=== PATIENT | female | born 2000 | race Caucasian/White ===

== ENCOUNTER 2022-08-17 12:15 | Inpatient (IN) | payer OTHER ==
[2022-08-17 13:55] LABS: BASO % 0.2 % (0-2.0); EOS % 0.7 % (0-4.5); HEMOGLOBIN 13.2 GM/dL (10.7-15.3); LYMPH % 16.9 % (8-40); MCH 32.5 pg (25.7-33.7); MCHC 34.6 g/dl (32.0-36.0); MEAN CELL VOLUME 93.8 fl (80-96); MEAN PLT VOLUME 8.9 fl (7.5-11.1); MONO % 7.8 % (3.8-10.2); NEUT % 74.4 % (42.8-82.8); PLATELET COUNT 281 10^3/uL (134-434); RBC 4.05 M/mm3 (3.60-5.2); RDW 13.6 % (11.6-15.6); WHITE BLOOD COUNT 11.1 K/mm3 (4.0-10.0)
[2022-08-17 14:02] LABS: INR 0.97 (0.83-1.09); PROTHROMBIN TIME (PATIENT) 11.3 SEC (9.7-13.0)
[2022-08-17 14:04] LABS: ACTIVATED PTT 26.5 SECONDS (25.2-36.5)
[2022-08-17 14:25] VITALS: BMI 42.0
[2022-08-17 14:30] LABS: CALCIUM 9.3 mg/dL (8.5-10.1)
[2022-08-17 14:31] LABS: BLOOD UREA NITROGEN 9.9 mg/dL (7-18)
[2022-08-17 14:34] LABS: CREATININE 0.7 mg/dL (0.55-1.3)
[2022-08-17] MEDS ORDERED: OXYTOCIN 30 UNITS in 0.9% NS 30 UNIT/500 ML INFUS.BAG IVPB ONE (14:42)
[2022-08-17] MEDS: OXYTOCIN 30 UNITS in 0.9% NS 30 UNIT/500 ML INFUS.BAG IVPB SCH (14:50)
[2022-08-17] MEDS ORDERED: DEXTROSE 5%-LACTATED RINGERS 1,000 ML IV SCH (15:00)
[2022-08-17] MEDS ORDERED: FENTANYL/BUPIVACAINE/NS/PF - PCEA - 50 ML DISP.SYRIN EP ONE (20:30)
[2022-08-17] MEDS ORDERED: BUPIVACAINE HCL/PF 0.25% (2.5MG/ML) 10 ML VIAL ONE (20:41)
[2022-08-17] MEDS: ELECTROLYTE-148 SOLN 1,000 ML IV SCH (20:45)
[2022-08-17] MEDS: FENTANYL/BUPIVACAINE/NS/PF - PCEA - 50 ML DISP.SYRIN EP SCH (21:00)
[2022-08-17] MEDS ORDERED: NALOXONE HCL 0.4 MG/ML VIAL IVPUSH PRN (21:05)
[2022-08-17] MEDS ORDERED: AMPICILLIN - 2 GM in SODIUM CHLORIDE 100 ML IVPB ONE (21:58)
[2022-08-17] MEDS ORDERED: AMPICILLIN SODIUM 2 GM VIAL ONE (22:55)
[2022-08-18] MEDS ORDERED: FENTANYL/BUPIVACAINE/NS/PF - PCEA - 50 ML DISP.SYRIN EP ONE (01:19)
[2022-08-18] MEDS: FENTANYL/BUPIVACAINE/NS/PF - PCEA - 50 ML DISP.SYRIN EP SCH (01:20)
[2022-08-18] MEDS ORDERED: AMPICILLIN - 1 GM in SODIUM CHLORIDE 100 ML IVPB SCH (02:00)
[2022-08-18] MEDS ORDERED: AMPICILLIN SODIUM 1 GM VIAL ONE (03:09)
[2022-08-18] MEDS: AMPICILLIN - 1 GM in SODIUM CHLORIDE 100 ML IVPB SCH ×5 (03:10→18:40)
[2022-08-18] MEDS ORDERED: CITRIC ACID/SODIUM CITRATE 30 ML UNIT-DOSE CUP PO ONE (03:43)
[2022-08-18] MEDS ORDERED: OXYTOCIN 20 UNITS in 0.9% NS 20 UNIT/1,000 ML INFUS.BAG IV ONE ×2 (04:07→07:34)
[2022-08-18] MEDS ORDERED: LIDO 2%/EPI 1:200000 PRESRVFRE (20 ML SDVIAL) ONE (04:07)
[2022-08-18] MEDS ORDERED: morphine SULFATE (PF) 1 MG/2 ML SYRINGE ONE (04:08)
[2022-08-18] MEDS ORDERED: ACETAMINOPHEN 325 MG TABLET (FP) PO PRN (05:00)
[2022-08-18] MEDS ORDERED: ONDANSETRON 4 MG/2 ML VIAL IVPUSH PRN (05:00)
[2022-08-18] MEDS ORDERED: METHYLERGONOVINE MALEATE 0.2 MG/1 ML AMP IM PRN (05:00)
[2022-08-18] MEDS ORDERED: IBUPROFEN 800 MG/8 ML IJ IVPB PRN (05:02)
[2022-08-18 06:06] LABS: CORD HCO3 22.5 mmHg (20-29); CORD PCO2 58.1 mmHg (30-78); CORD pH 7.206 (7.14-7.44)
[2022-08-18 06:07] LABS: CORD BASE EXCESS -5.1 mmol/L (0-2); CORD HCO3 22.1 mmHg (20-29); CORD PCO2 48.7 mmHg (30-78); CORD pH 7.275 (7.14-7.44)
[2022-08-18] MEDS: OXYTOCIN 20 UNITS in 0.9% NS 20 UNIT/1,000 ML INFUS.BAG IV SCH ×2 (07:40→14:37)
[2022-08-18] MEDS: CEFAZOLIN 1 GM in DEXTROSE 5%-WATER - 50 ML IVPB SCH ×3 (09:14→20:14)
[2022-08-18] MEDS ORDERED: oxyCODONE HCL 5 MG TABLET PO PRN ×2 (17:00)
[2022-08-18] MEDS: SIMETHICONE 80 MG TAB.CHEW (FP) PO PRN (20:14)
[2022-08-19] MEDS: CEFAZOLIN 1 GM in DEXTROSE 5%-WATER - 50 ML IVPB SCH (03:07)
[2022-08-19] MEDS: SIMETHICONE 80 MG TAB.CHEW (FP) PO PRN ×3 (04:37→20:04)
[2022-08-19] MEDS: IBUPROFEN 600 MG TABLET (FP) PO PRN ×3 (04:37→20:04)
[2022-08-19] MEDS ORDERED: BISACODYL 10 MG SUPP.RECT RC PRN (05:00)
[2022-08-19] MEDS: ACETAMINOPHEN 325 MG TABLET (FP) PO PRN ×2 (08:42→18:02)
[2022-08-19 09:25] LABS: BASO % 0.6 % (0-2.0); HEMATOCRIT 30.3 % (32.4-45.2); HEMOGLOBIN 10.2 GM/dL (10.7-15.3); MCH 32.2 pg (25.7-33.7); MCHC 33.8 g/dl (32.0-36.0); MEAN CELL VOLUME 95.2 fl (80-96); MEAN PLT VOLUME 8.9 fl (7.5-11.1); MONO % 7.9 % (3.8-10.2); NEUT % 66.5 % (42.8-82.8); PLATELET COUNT 227 10^3/uL (134-434); RBC 3.18 M/mm3 (3.60-5.2); RDW 13.6 % (11.6-15.6); WHITE BLOOD COUNT 10.5 K/mm3 (4.0-10.0)
[2022-08-19] MEDS: ENOXAPARIN NA (PORCINE) 40 MG/0.4 ML DISP.SYRIN SQ SCH (10:54)
[2022-08-20] MEDS: IBUPROFEN 600 MG TABLET (FP) PO PRN ×4 (04:15→21:24)
[2022-08-20] MEDS: SIMETHICONE 80 MG TAB.CHEW (FP) PO PRN ×3 (09:24→21:24)
[2022-08-20] MEDS: ENOXAPARIN NA (PORCINE) 40 MG/0.4 ML DISP.SYRIN SQ SCH (09:25)
[2022-08-20 09:54] VITALS: RESP 18
[2022-08-20] MEDS: FENTANYL/BUPIVACAINE/NS/PF - PCEA - 50 ML DISP.SYRIN EP SCH ×2 (18:36→20:03)
[2022-08-20] MEDS: ELECTROLYTE-148 SOLN 1,000 ML IV SCH ×2 (20:02→20:03)
[2022-08-20] MEDS: OXYTOCIN 30 UNITS in 0.9% NS 30 UNIT/500 ML INFUS.BAG IVPB SCH ×2 (20:02→20:03)
[2022-08-20] MEDS: OXYTOCIN 20 UNITS in 0.9% NS 20 UNIT/1,000 ML INFUS.BAG IV SCH (20:03)
[2022-08-20] MEDS: AMPICILLIN - 1 GM in SODIUM CHLORIDE 100 ML IVPB SCH ×2 (20:07→20:10)
[2022-08-21 08:40] LABS: BASO % 0.2 % (0-2.0); HEMOGLOBIN 11.3 GM/dL (10.7-15.3); LYMPH % 24.9 % (8-40); MCH 32.5 pg (25.7-33.7); MCHC 34.3 g/dl (32.0-36.0); MEAN CELL VOLUME 94.8 fl (80-96); MEAN PLT VOLUME 8.4 fl (7.5-11.1); MONO % 8.1 % (3.8-10.2); NEUT % 63.8 % (42.8-82.8); PLATELET COUNT 281 10^3/uL (134-434); RBC 3.48 M/mm3 (3.60-5.2); RDW 13.6 % (11.6-15.6); WHITE BLOOD COUNT 8.9 K/mm3 (4.0-10.0)
[2022-08-21] MEDS: ENOXAPARIN NA (PORCINE) 40 MG/0.4 ML DISP.SYRIN SQ SCH (09:23)
[2022-08-21] MEDS: SIMETHICONE 80 MG TAB.CHEW (FP) PO PRN (09:37)
[2022-08-21] MEDS: IBUPROFEN 600 MG TABLET (FP) PO PRN (09:37)
[2022-08-21 09:43] VITALS: TEMP 99.2
[2022-08-21 11:53] VITALS: BP 126/85; PULSE 109
== END 2022-08-21 12:05 | disposition home or self-care (01) | DRG 540 ==
LOC: JLDR 12:15 → J3W 08-18 07:50
PROVIDERS: ADMIT Obstetrics & Gynecology; ATTEND Obstetrics & Gynecology
PROC: 10D00Z1 Extraction of Products of Conception, Low, Open Approach (ICD-10-PCS; principal; 2022-08-18)
PROC: 10H073Z Insertion of Monitoring Electrode into Products of Conception, Via Natural or Artificial Opening (ICD-10-PCS; 2022-08-18)
DX: O42.02 Full-term premature rupture of membranes, onset of labor within 24 hours of rupture (principal); O76 Abnormality in fetal heart rate and rhythm complicating labor and delivery; O62.0 Primary inadequate contractions; O69.81X0 Labor and delivery complicated by cord around neck, without compression, not applicable or unspecified; O77.0 Labor and delivery complicated by meconium in amniotic fluid; Z3A.39 39 weeks gestation of pregnancy; Z37.0 Single live birth
CPT/HCPCS: 36415; 36600; 80048; 82803; 85025; 85610; 85730; 86780; 86850; 86900; 86901; 88307-TC; C9803-CS; U0003; U0005